=== PATIENT | male | born 1960 | race Caucasian/White ===

== ENCOUNTER 2016-09-13 16:49 | Emergency (ER) | payer SELFPAY ==
[~2016-09-13 16:49] MED LIST: *UNABLE1; AMOXIL500 MG PO; AMOXIL500C PO; BIAXIN250 PO; BIAXIN5 PO; CYANO1000T PO; DSS PO; NEXIUM20 M1 PO; NORCO1 TA1 PO; PCET PO; PRIN10 PO; PROTONIX PO; SUCR PO; T PO; ZOFRAN4 PO
== END 2016-09-13 16:51 | disposition home or self-care (01) ==
LOC: ER 16:49
DX: S89.92XA Unspecified injury of left lower leg, initial encounter (principal); Z87.891 Personal history of nicotine dependence; Z88.2 Allergy status to sulfonamides; Z79.899 Other long term (current) drug therapy; X50.1XXA Overexertion from prolonged static or awkward postures, initial encounter
CPT/HCPCS: 73560-LT; 99283